=== PATIENT | male | born 1985 | race Caucasian/White ===

== ENCOUNTER 2016-06-18 07:18 | Emergency (ER) | payer OTHER ==
[~2016-06-18] VITALS: Ht 175.3 cm; Wt 82.0 kg
[2016-06-18 07:21] VITALS: BP 147/79; PULSE 104; RESP 14; TEMP 102.4; O2SAT 95
[2016-06-18] MEDS ORDERED: IBUPROFEN 600 MG TAB PO ONE (07:45)
[2016-06-18] MEDS ORDERED: VENTAER INH (07:59)
--- NOTE | 2016-06-18 07:59 | PD ---
HPI Chief Complaint: Cold / Flu Symptoms Time Seen by Provider: 07:41 Travel History International Travel<30 days: No Contact w/Intl Traveler<30days: No Traveled to known affect area: No History of Present Illness HPI 31 y/o male presents with fever and cough and congestion over the past couple of days. He took DayQuil last night but denies taking anything for fever this morning. He states he had pneumonia when he moved down here in 2013 and whenever he gets a cold he will have an inhaler that he uses that he is out of it now. He states he's only used an inhaler once between now in 2013. He states multiple sick contacts are present at his work. He denies getting a flu shot this year. He denies other concurrent complaints. Quality is high. Severity is 102 PFSH Past Medical History Medical History: Denies Significant Hx Diminished Hearing: No Influenza Vaccination: No Social History Alcohol Use: Yes (WEEKENDS) Tobacco Use: No Substance Use: No Allergies-Medications (Allergen,Severity, Reaction): Coded Allergies: No Known Allergies (Unverified , 06/18/16) Reported Meds & Prescriptions Reported Meds & Active Scripts Active Ventolin Hfa 18 GM Inh (Albuterol Sulfate) 90 Mcg/Act Aer 2 Puff INH Q4-6H PRN Review of Systems Except as stated in HPI: all other systems reviewed are Neg Physical Exam Narrative General: No apparent distress, well appearing ENT: Posterior oropharyngx clear without exudate or erythema, external auditory canals are normal. Bilateral TM clear Neck: Neck is supple, no meningeal signs, trachea is midline Cardiovascular: Regular rate and rhythm Lungs: No increased respiratory effort noted, CTA bilaterally Abdomen: Soft, NT, ND, no rebound or guarding Neuro: Awake, motor and sensation grossly intact, normal speech Data Data Last Documented VS Vital Signs Date Time Temp Pulse Resp B/P Pulse Ox O2 Delivery O2 Flow Rate FiO2 06/18/16 07:34 Room Air 06/18/16 07:21 102.4 104 14 147/79 95 Orders Influenzae A/B Antigen (06/18/16 07:37) Group A Rapid Strep Screen (06/18/16 07:37) Chest, Pa & Lat (06/18/16 ) Ibuprofen (Motrin) (06/18/16 07:45) Strep Culture (Group A) (06/18/16 07:40) MDM Medical Decision Making Medical Screen Exam Complete: Yes Emergency Medical Condition: Yes Medical Record Reviewed: Yes (past history confirmed) Interpretation(s) Flu a is positive Strep is negative Last 24 hours Impressions Chest X-Ray 06/18/16 0000 Signed Impressions: Service Date/Time: Saturday, June 18, 2016 07:54 - CONCLUSION: No acute cardiopulmonary abnormality is identified. Glen Balderas MD Differential Diagnosis Bronchitis, strep pharyngitis, influenza, pneumonia Narrative Course Will check influenza, strep screen, chest x-ray and dose with Motrin and reevaluate. Currently without wheezing on exam will refill inhaler to use at home if develops wheezing, lengthy discussion with patient and offered Tamiflu but agrees given over 48 hours and without significant comorbidities and stable vitals other than fever to continue supportive care. We'll provide with work note.Patient denies any new complaints and states that they are feeling better. Patient happy with care, all questions answered. Patient knows that follow up is incumbent on them and to return to the emergency room immediately if new or worsening symptoms develop. Patient given strict return precautions, vitals reviewed and are normal , agrees to further workup as an outpatient. Diagnosis Primary Impression: Influenza A Patient Instructions: General Instructions Departure Forms: Tests/Procedures, Work Release Special Instructions: When fever free for 48 hours Additional Instructions: Alternate Tylenol and Motrin, return as needed, use albuterol as needed, follow with primary care physician on Tuesday for recheck Med/Other Pt SpecificInfo: Prescription(s) given Scripts Albuterol 18 GM Inh (Ventolin Hfa 18 GM Inh)90 Mcg/Act Aer2 Puff INH Q4-6H PRN ( SHORTNESS OF BREATH) #1 INHALER Prov:Mary De Santiago MD 06/18/16 Disposition: 01 DISCHARGE HOME Condition: Stable Mary De Santiago MD Jun 18, 2016 07:59
--- NOTE | 2016-06-18 08:05 | RADRPT ---
EXAM DATE/TIME: 06/18/2016 07:54 [facility] COMPARISON: No previous studies available for comparison. INDICATIONS : Cough with chest pain for last three days MEDICAL HISTORY : None. SURGICAL HISTORY : None. ENCOUNTER: Initial ACUITY: 1 day PAIN SCORE: 7/10 LOCATION: Bilateral chest FINDINGS: PA and lateral views of the chest demonstrate a normal-sized cardiac silhouette. There is no effusion , consolidation, or pneumothorax. The bones and soft tissues demonstrate no acute abnormality. There is likely an old healed right ninth rib fracture. CONCLUSION: No acute cardiopulmonary abnormality is identified. Glen Balderas MD on June 18, 2016 at 8:03 Board Certified Radiologist. This report was verified electronically.
== END 2016-06-18 09:13 | disposition home or self-care (01) ==
LOC: NEPC 07:18
DX: J09.X2 Influenza due to identified novel influenza A virus with other respiratory manifestations (principal)
CPT/HCPCS: 71020; 87081; 87804; 87880; 99283